=== PATIENT | female | born 1985 | race Caucasian/White ===

== ENCOUNTER 2017-04-03 12:37 | Emergency (ER) | payer BC ==
[~2017-04-03] VITALS: Ht 160 cm; Wt 61.0 kg
[2017-04-03 12:38] VITALS: BP 168/90; PULSE 114; RESP 22; TEMP 98.4; O2SAT 100
[2017-04-03] MEDS ORDERED: GABA100C4 PO (13:33)
[2017-04-03] MEDS ORDERED: BUTA1CAP PO (13:33)
[2017-04-03] MEDS ORDERED: CLON0.5T PO (13:33)
[2017-04-03] MEDS ORDERED: CYCL5TAB PO (13:33)
--- NOTE | 2017-04-03 14:01 | PD ---
HPI Chief Complaint: Back/ Neck Pain or Injury Time Seen by Provider: 13:53 Travel History International Travel<30 days: No Contact w/Intl Traveler<30days: No Traveled to known affect area: No History of Present Illness HPI 31-year-old female presents to the emergency department with complaint of right- sided low back pain after sliding down 2 steps yesterday. She has history of chronic low back pain with history of low back fracture. She denies encopresis , incontinence, saddle anesthesias. Denies IV drug use or cancer. Denies fever , vomiting, abdominal pain, change in urine or stool. Denies paresthesias, loss of sensation, decreased range of motion, decreased strength to bilateral lower extremities. Pain radiates down the back of her right leg. Describes pain as stabbing and shooting down her right leg. Patient has prescriptions for gabapentin and Flexeril for chronic low back pain. She has taken these medications for symptom management. Says she is also taken ibuprofen and Tylenol and tried a muscle rub. She is requesting pain medications. Allergies to Toradol and penicillin. Symptoms are mild in severity. Has no other medical complaints. No other modifying factors or associated signs and symptoms. [employer] Past Medical History Musculoskeletal: Yes (SIATICA "BACK PROBLEMS") Migraines: Yes ?: Unknown Social History Alcohol Use: Yes Tobacco Use: Yes Substance Use: No Allergies-Medications (Allergen,Severity, Reaction): Coded Allergies: ketorolac (Verified Allergy, Intermediate, RASH, 04/03/17) penicillin V (Verified Allergy, Intermediate, HIVES, 04/03/17) Reported Meds & Prescriptions Reported Meds & Active Scripts Active Reported Clonazepam 0.5 Mg Tab 0.5 Mg PO BID Flexeril (Cyclobenzaprine HCl) 5 Mg Tab 5 Mg PO TID Gabapentin 100 Mg Cap 100 Mg PO BID Fioricet (Cuxpiewkwt-Ttofvntfxpceq-Nwiabesy) 50-300-40 Mg Cap 1 Cap PO Q4H PRN Review of Systems Except as stated in HPI: all other systems reviewed are Neg Physical Exam Narrative GENERAL: Well-nourished, well-developed female patient, in no acute distress; afebrile, nontoxic-appearing SKIN: Warm and dry. HEAD: Atraumatic. Normocephalic. EYES: Pupils equal and round. No scleral icterus. No injection or drainage. ENT: Mucosa pink and moist. Airway patent. NECK: Trachea midline. CARDIOVASCULAR: Regular rate. RESPIRATORY: No accessory muscle use. GASTROINTESTINAL: Flat. MUSCULOSKELETAL: Bilateral lower extremities supple and non-tense with 2+ pedal pulses and sensory intact; with full range of motion and 5/5 strength. 2 + DTRs bilaterally. Active dorsiflexion and extension of bilateral feet. Bilateral straight leg raise is negative for low back pain. Ambulatory in room with normal gait. Sitting up in bed at 90. No obvious deformities. No clubbing. No cyanosis. No edema. BACK: Midline point tenderness on palpation of the lumbar spine. Tenderness on palpation of right lumbar iliosacral area. No obvious deformities. NEUROLOGICAL: Awake and alert. Oriented 3. No obvious cranial nerve deficits. Motor grossly within normal limits. Normal speech. Moves all extremities. 5/5 strength to all extremities. Sensory intact. PSYCHIATRIC: Appropriate mood and affect; insight and judgment normal. Data Data Last Documented VS Vital Signs Date Time Temp Pulse Resp B/P (MAP) Pulse Ox O2 Delivery O2 Flow Rate FiO2 04/03/17 12:38 98.4 114 22 168/90 (116) 100 MDM Medical Decision Making Medical Screen Exam Complete: Yes Emergency Medical Condition: Yes Medical Record Reviewed: Yes Differential Diagnosis Sciatica, low back strain, acute exacerbation of chronic low back pain Narrative Course 31-year-old female with low back injury after falling and sliding down 2 steps yesterday. She has history of chronic low back pain and fracture. She is complaining of right-sided low back pain that radiates down her right leg. She has midline tenderness on palpation of the lumbar spine. The patient is up and moving all over the room and is very dramatic and tearful. She was crying out in pain prior to her evaluation. She is insisting I give her pain medications. I told her I would order her some ibuprofen for pain and she got mad and left prior to treatment. Patient ambulated out of the emergency department. AMA: The risks of leaving against medical advice without further evaluation treatment were discussed with the patient. These risks include cardiac dysfunction, cardiac dysrhythmia, possible heart attack, possible stroke or . The patient indicated understanding of these risks and appeared to have the capacity to make this decision. Diagnosis Primary Impression: Left against medical advice Disposition: 07 AGAINST MEDICAL ADVICE Debbie Miller Apr 03, 2017 14:01
== END 2017-04-03 14:05 | disposition left against medical advice (07) ==
LOC: NEPK 12:37
DX: M54.5 Low back pain (principal); F17.200 Nicotine dependence, unspecified, uncomplicated; W10.9XXA Fall (on) (from) unspecified stairs and steps, initial encounter; M54.30 Sciatica, unspecified side
CPT/HCPCS: 99281